=== PATIENT | female | born 1980 | race African-American/Black ===

== ENCOUNTER 2022-01-27 14:39 | Emergency (ER) | payer MEDICAID, OTHER ==
[~2022-01-27] VITALS: Ht 160 cm; Wt 113.6 kg
[2022-01-27 15:36] LABS: Hematocrit 35.3 % (36.0-46.0); Hemoglobin 10.9 g/dL (12.2-16.2); Mean Corpuscular Hemoglobin 28.7 pg (28.0-32.0); Mean Corpuscular Hgb Conc. 30.9 g/dL (32.0-36.0); Red Cell Distribution Width 13.9 % (11.8-14.3); White Blood Cell 2.3 10^3/uL (4.4-10.8)
[2022-01-27 15:38] LABS: Band Neutrophils % (manual) 0; Basophils % (manual) 0 (0.0-2.0); Blast Cells 0; Eosinophils % (manual) 0 (0-7); Metamyelocytes % 0; Myelocytes % 0; Promyelocytes % 0; Reactive Lymphocytes 0
[2022-01-27 15:51] LABS: Albumin 3.7 g/dL (3.4-5.0); Calcium 8.8 mg/dL (8.5-10.1); Potassium 3.8 mmol/L (3.5-5.1)
[2022-01-27 15:53] LABS: BUN/Creatinine Ratio 14.5
[2022-01-27 15:55] LABS: Bilirubin, Total 0.4 mg/dL (0.2-1.0); Total Protein 7.2 g/dL (6.4-8.2)
[2022-01-27] MEDS ORDERED: methylPREDNISolone SOD SUCC 125 MG/2 ML VL IV ONE (16:00)
[2022-01-27] MEDS ORDERED: MORPHINE SULFATE 4 MG/ML SYR/VIAL IV ONE (16:00)
[2022-01-27] MEDS ORDERED: SODIUM CHLORIDE 0.9% 1,000 ML IV ONE (16:00)
[2022-01-27] MEDS ORDERED: ONDANSETRON HCL 4 MG/2 ML VIAL IV ONE (16:00)
[2022-01-27 16:19] LABS: Lymphocytes % (manual) 21 (10.0-50.0); Monocytes % (manual) 22 (0-12)
[2022-01-27 17:03] VITALS: BP 121/69
== END 2022-01-27 18:18 | disposition home or self-care (01) ==
LOC: ER 14:39 → EDBD 14:39 → ER 18:06
DX: M79.10 Myalgia, unspecified site (principal); D71 Functional disorders of polymorphonuclear neutrophils; Z86.69 Personal history of other diseases of the nervous system and sense organs
CPT/HCPCS: 36415; 71045; 71250; 80053; 84484; 85007; 85027; 96361; 96374; 96375; 99285; J2270; J2405; J2930; J7030